=== PATIENT | female | born 1985 | race Caucasian/White ===

== ENCOUNTER 2020-05-04 21:39 | Emergency (ER) | payer BC, OTHER ==
[2020-05-04 21:58] VITALS: TEMP 97.8; BMI 22.0
[2020-05-04 22:06] LABS: BASO % 1.4 % (0-2.0); EOS % 2.3 % (0-4.5); HEMATOCRIT 35.1 % (32.4-45.2); HEMOGLOBIN 11.5 GM/dl (10.7-15.3); LYMPH % 51.1 % (8-40); MCH 30.7 pg (25.7-33.7); MCHC 32.8 g/dl (32.0-36.0); MEAN CELL VOLUME 93.7 fl (80-96); MEAN PLT VOLUME 10.4 fl (7.5-11.1); MONO % 7.2 % (3.8-10.2); PLATELET COUNT 282 K/MM3 (134-434); RBC 3.75 M/mm3 (3.60-5.2); RDW 12.2 % (11.6-15.6); WHITE BLOOD COUNT 12.3 K/mm3 (4.0-10.8)
[2020-05-04] MEDS ORDERED: SODIUM CHLORIDE 1,000 ML IV ONE ×2 (22:20→22:21)
[2020-05-04 22:23] LABS: ALBUMIN 3.8 g/dl (3.4-5.0); BILIRUBIN,TOTAL 0.4 mg/dl (0.2-1); CALCIUM 9.2 mg/dl (8.5-10); CREATININE 0.9 mg/dl (0.55-1.3); TOT PROT 6.4 g/dl (6.4-8.2)
[2020-05-04 23:01] LABS: MCHC 33.2 g/dl (32.0-36.0); MEAN CELL VOLUME 93.4 fl (80-96); MEAN PLT VOLUME 9.9 fl (7.5-11.1); PLATELET COUNT 189 K/MM3 (134-434); RBC 2.89 M/mm3 (3.60-5.2); RDW 12.1 % (11.6-15.6)
[2020-05-04 23:17] VITALS: BP 108/58; PULSE 74
[2020-05-05] MEDS ORDERED: ONDANSETRON 4 MG/2 ML VIAL IVPB ONE (00:49)
[2020-05-05 01:34] LABS: HEMATOCRIT 30.1 % (32.4-45.2); HEMOGLOBIN 9.8 GM/dL (10.7-15.3); MCH 30.5 pg (25.7-33.7); MCHC 32.8 g/dl (32.0-36.0); MEAN CELL VOLUME 93.3 fl (80-96); MEAN PLT VOLUME 10.7 fl (7.5-11.1); PLATELET COUNT 206 K/MM3 (134-434); RBC 3.22 M/mm3 (3.60-5.2); RDW 12.8 % (11.6-15.6); WHITE BLOOD COUNT 17.3 K/mm3 (4.0-10.0)
== END 2020-05-05 01:58 | disposition home or self-care (01) ==
LOC: FER 21:39
PROC: 3E033GC Introduction of Other Therapeutic Substance into Peripheral Vein, Percutaneous Approach (ICD-10-PCS; principal; 2020-05-04)
PROC: 3E0337Z Introduction of Electrolytic and Water Balance Substance into Peripheral Vein, Percutaneous Approach (ICD-10-PCS; 2020-05-04)
DX: N93.8 Other specified abnormal uterine and vaginal bleeding (principal)
CPT/HCPCS: 36415; 80053; 85025; 85027; 86850; 86900; 86901; 99284-25